=== PATIENT | female | born 1975 | race Caucasian/White ===

== ENCOUNTER 2019-03-23 19:53 | Emergency (ER) | payer SELFPAY ==
[~2019-03-23] VITALS: Ht 160 cm; Wt 81.2 kg
[~2019-03-23 19:53] MED LIST: ACET500C5 PO
[2019-03-23 20:05] VITALS: Ht 160 cm; Wt 81.2 kg
[2019-03-23] MEDS ORDERED: HYDROCODONE/APAP (10/325) TAB PO ONE (20:30)
[2019-03-23 21:36] VITALS: BP 123/92; PULSE 68; RESP 18
== END 2019-03-23 21:37 | disposition home or self-care (01) ==
LOC: FTE 19:53
DX: R51 Headache (principal)
CPT/HCPCS: 81003; 81025; 99283